=== PATIENT | female | born 1960 | race Caucasian/White ===

== ENCOUNTER → 2016-03-30 | Day surgery (SDC) | payer BC ==
[~2016-03-30] MED LIST: IV RINGERS,LACTATED 1000ML 1,000 ML IV ONE; LIDOCAINE 2% PF Vial for OR 5 ML VIAL. ONE; LISI-334 PO; PROPOFOL 20 ML IV ONE; VENTOLIN HFA18 GM INH
[2016-03-30 14:15] VITALS: BP 164/94
== END ==
LOC: SURG 12:37
PROVIDERS: ATTEND Internal Medicine Gastroenterology
DX: K22.2 Esophageal obstruction (principal); K29.50 Unspecified chronic gastritis without bleeding; R13.10 Dysphagia, unspecified
CPT/HCPCS: 43235; 43450; J2704

== ENCOUNTER → 2016-04-07 | Outpatient (CLI) | payer BC ==
[2016-03-30 14:15] VITALS: BP 164/94
[~2016-04-07] VITALS: Ht 157.5 cm; Wt 71.7 kg
[~2016-04-07] MED LIST changes: -IV RINGERS,LACTATED 1000ML 1,000 ML IV ONE; -LIDOCAINE 2% PF Vial for OR 5 ML VIAL. ONE; -PROPOFOL 20 ML IV ONE; +SINCALIDE 1.4 MCG in IV NORMAL SALINE 50ML 30 ML IV ONE
--- NOTE | 2016-04-07 13:41 | RAD ---
Indication: Epigastric pain. No discrete liver mass is detected. The gallbladder is without stones or sludge. No wall thickening or pericholecystic fluid is identified. The pancreas was not well-visualized. The spleen is unremarkable. The kidneys are unremarkable. No hydronephrosis is identified. The aorta is nonaneurysmal. There is no ascites. Impression: Unremarkable abdominal ultrasound.
--- NOTE | 2016-04-07 14:51 | RAD ---
Indication: Epigastric pain. The patient was administered 5.0 mCi of technetium 99m Choletec and imaging over the abdomen was performed. Next, the patient was administered 1.4 mcg of CCK intravenously and gallbladder ejection fraction was calculated. There is homogeneous uptake of activity by the liver with prompt excretion into the gallbladder and common duct, with normal passage of activity into the small bowel. The gallbladder ejection fraction is normal at 92%. Impression: Normal HIDA scan and gallbladder ejection fraction.
== END | disposition home or self-care (01) ==
LOC: US 10:18
PROVIDERS: ATTEND Internal Medicine Gastroenterology
DX: R10.13 Epigastric pain (principal)
CPT/HCPCS: 76700; 78226; 96374; 96375; A9537; J2805

== ENCOUNTER → 2017-11-02 | Outpatient (CLI) | payer OTHER ==
[2016-04-18 13:15] VITALS: BP 154/90
[~2017-11-02] MED LIST changes: +BUTA1CAP29 PO; -SINCALIDE 1.4 MCG in IV NORMAL SALINE 50ML 30 ML IV ONE
--- NOTE | 2017-11-02 15:30 | KCIC ---
Bilateral digital screening mammograms: Reason for examination: Routine screening. Comparison is made to previous studies dated 07/16/2015 and 01/15/2014. Interpretation was made with the benefit of CAD. The skin and nipples show no abnormalities. No abnormal axillary lymph nodes are seen. The breast parenchyma is predominantly fatty. (Breast density: Category A.) There are no dominant masses, suspicious calcifications or architectural distortions. Impression: No evidence of malignancy. Recommend routine screening. BI-RADS Category 1: Negative. "Our facility is accredited by the [employer] Mammography [employer]." This patient's information has been entered into a reminder system for the patient to be notified with the results of her examination and a target date for the next mammogram. Electronically signed by: Suyapa Dial MD (11/02/2017 3:27 PM) [facility]
== END | disposition home or self-care (01) ==
LOC: KCIC MAMMO 14:21
PROVIDERS: ATTEND Family Medicine
DX: Z12.31 Encounter for screening mammogram for malignant neoplasm of breast (principal); I10 Essential (primary) hypertension
CPT/HCPCS: 77067

== ENCOUNTER → 2018-06-27 | Outpatient (CLI) | payer OTHER ==
[2016-04-18 13:15] VITALS: BP 154/90
[~2018-06-27] MED LIST changes: +AMIT25TA PO; +AZEL6DRO2 EACHEYE; +BENZ100C PO; +CYCL10TA2 PO; +FLUT9.9S NS; +HYDR30CR6 RC; +LEVO100T5 PO; +LISI1TAB7 PO; +MOME13HF2 IH; +MONT10TA9 PO; +MUPI22OI2 TP; +OLOP5DRO EACHEYE; +PANT20TA2 PO; +PRAM0.255 PO; +RANI-376 PO
--- NOTE | 2018-06-28 06:27 | PAIN ---
DATE OF SERVICE: 06/27/2018 INITIAL CONSULTATION FOR PAIN CLINIC CHIEF COMPLAINT: Low back and bilateral lower extremity pain. HISTORY OF PRESENT ILLNESS: This is a 57-year-old female who presents with history of pain in low back, bilateral lower extremities for many years, worse over the past 6 months or so to a year ago. The patient reports no specific injury or accident that she is aware of, but over time it is getting worse in the low back, mainly with bending and stooping, standing for prolonged periods with pain radiating in the posterior gluteus, posterior lateral thigh, lateral anterior thighs and medial knees bilaterally. The patient reports mainly across the low back is her main problem, but when she is on her feet for more than about 30 minutes, it does begin to radiate into the lower extremities. The patient reports it awakens her from sleep at night, not every night, but some nights. It does not affect her bowel or bladder control, does affect her ability to walk. She is not using any assistive devices to ambulate, but is simply putting up with the pain while she is working, which she does mostly on her feet with a lot of bending and stooping and lifting activities. The patient reports she has not had any recent treatment for the back. She had some injections about in 2013 in the sacroiliac regions, which she reports helped some with the back pain, but not the leg pain. The patient has not had any formal physical therapy recently, has not had any chiropractic treatment. She did some stretching on her own using heat and ice at home when her pain is flared which helps only mildly. The patient has tried [id number]-uxa-[id number] medications including Advil and Tylenol, which did not help the pain significantly as well. The patient does not have any recent diagnostic studies, she does have some notes from [address] Andrzej Fan, describing degenerative disk disease and lumbar spine as well as some sacroiliitis at that time. The patient rates her disability rate from 0-10, 10 being the worst, is an 8 in all categories with family and home responsibilities, recreation, social activity, occupation, sexual behavior, self-care and life support activities. The patient reports no loss of motor function, but significant fatigability with both legs and the hips, especially when walking and standing for prolonged periods of greater than 30 minutes to an hour. PAST MEDICAL HISTORY: Significant for shortness of breath, hypertension, otherwise has been in fairly good health. PAST SURGICAL HISTORY: The patient reports no previous surgeries. CURRENT MEDICATIONS: Include Protonix, Zantac, Mirapex, Patanol eyedrops, Ventolin inhaler, amitriptyline, Tessalon Perles, cyclobenzaprine, Flonase, Analpram and hydrocortisone cream, levothyroxine, mupirocin ointment, montelukast, Dulera inhaler, and lisinopril. ALLERGIES: The patient has no known drug allergies. FAMILY HISTORY: Negative for any significant conditions that she lists. SOCIAL HISTORY: The patient does not drink alcohol, does not smoke. Does not use any illegal, illicit or recreational drugs. Lives locally in [place], [place]. 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 REVIEW OF SYSTEMS: Positive for those items mentioned in history of present illness. All systems reviewed and otherwise negative. It is complete, full and well documented on the patient's chart. PHYSICAL EXAMINATION: VITAL SIGNS: The patient's blood pressure 145/85, pulse 85, respiration 18, temperature 98.3 degrees Fahrenheit. Height is 5 feet 2 inches, weight is 150 pounds. GENERAL: The patient is awake, alert, oriented, appropriate, very pleasant demeanor. HEENT: Head shows normocephalic, atraumatic. Extraocular movements are intact and symmetrical. Oral cavity: Mucous membranes moist and pink. Dentition is intact. NECK: Shows anterior throat supple without palpable lymphadenopathy noted. Swallow reflex symmetrical. CHEST: Shows normal on inspection. Breath sounds clear to auscultation bilaterally. HEART: Shows S1, S2 clear. No murmurs auscultated. ABDOMEN: Soft, nontender, nondistended. No palpable organomegaly is noted. No rebound or guarding demonstrated. BACK: Shows spine grossly in the midline. Normal appearing thoracic kyphosis and mild flattening of lumbar lordotic curvature. No previous surgical scars noted. The patient does have some scarring in the bilateral gluteus, which she reports is from an asthma shot of some sort in the [place] at least 25 years ago and it is in both sides of gluteus with some significant in-tracted skin as well as a palpable scar tissue beneath these which is not significantly tender on palpation, however. The patient's lumbar spine shows paraspinous muscles symmetrical on inspection. With palpation, shows some moderate tenderness throughout the middle and lower distribution of paraspinous muscles bilaterally, slightly more on the right than the left, but present bilaterally, no specific trigger points are noted. The muscles are firm and taut and again diffusely tender throughout. There is some minor tenderness over the posterior iliac spine and in the posterior aspect of the sacroiliac joint, but only mildly even with deep palpation. No specific tenderness over the sacrum itself or the spinous processes. The patient does show good rotational motion of lumbar spine, both laterally as well as extension and flexion greater than 10 degrees, right and left extension greater than 10 degrees, forward flexion 45 degrees without exacerbation of pain significantly. EXTREMITIES: Lower extremities show deep tendon reflexes at 2+ in patellar, 1+ tendo-calcaneus tendons and are equal. Motor exam is approximately 4 on a scale of 5, but symmetrical with dorsiflexion, extension, quadriceps and hamstring flexion. Peripheral pulses of 1+ posterior tibia. No peripheral edema is noted. Lower extremities are warm and dry to touch, equal in color and appearance. Straight leg raise noted to be negative for reproduction of any radicular symptoms bilaterally. Gaenslen's and Donal's maneuvers are negative bilaterally as well. The patient's skin shows warm and dry, good turgor. No edema. No sores, rashes or bruising throughout. The patient is able to stand, stand on her toes without significant difficulty or loss of balance, is walking with a slight shuffling gait, but does not appear to favor the right or left lower extremity significantly, not using any assistive devices such as canes or walkers to ambulate. IMPRESSION: 1. This is a 57-year-old female with long history of low back pain, bilateral lower extremity pain, slightly worse on the right than the left with pain in a radicular fashion, L4-L5 dermatomal distribution. 2. History of hypertension. 3. Shortness of breath. 4. Asthma by history. PLAN: Options were discussed with the patient including conservative medical management, physical therapy, interventional techniques. She would like to pursue with interventional techniques. We discussed a lumbar epidural steroid injection using description as well as anatomical models to describe the procedure. First, we will obtain an MRI scan. It has been many years since she had any diagnostic studies performed on her spine with radicular symptoms, however, and we will wait for results of that. Once that is obtained, we will discuss further treatment at that time, potentially L4-L5 level lumbar epidural steroid injection. KATHLEEN MALIK MD DR: KATYA/ok JOB#: [id number] / [id number] STEVE Vann MD
== END | disposition home or self-care (01) ==
LOC: PNCL 13:27
PROVIDERS: ATTEND Anesthesiology
DX: M54.5 Low back pain (principal); M79.605 Pain in left leg; M79.604 Pain in right leg; I10 Essential (primary) hypertension; J45.909 Unspecified asthma, uncomplicated; Z79.899 Other long term (current) drug therapy
CPT/HCPCS: G0463

== ENCOUNTER → 2018-07-05 | Outpatient (CLI) | payer OTHER ==
[2016-04-18 13:15] VITALS: BP 154/90
--- NOTE | 2018-07-06 14:25 | RAD ---
MRI Lumbar Spine without contrast History: Low back pain, bilateral leg radiculopathy Technique: Multiplanar, multi sequential noncontrast MR imaging was performed of the lumbar spine. Comparison: October 31, 2013 Findings: There is increased endplate irregularity and degenerative endplate change at L2-3, progression of advanced degenerative disc disease at this level, no fluid in the intervertebral disc space and no paraspinous edema at this level. There is minimal posterior subluxation L2 relative to L3, negligible posterior subluxation L3 relative to L4. There is [id number] degenerative disc disease at L3-4, L1-2, and T12-L1. Conus terminates at T12-L1. There is mild levoscoliosis centered near L2-L3. Not included on axial images, there is posterior protrusion at T11-12 without significant spinal stenosis. L1-L2: Neural foramina and spinal canal are adequate. L2-L3: There is minimal disc osteophyte complex and bulge superimposed on the posteriorly subluxed L2 vertebral body margin with mild indentation upon the ventral thecal sac, no significant spinal stenosis. Neural foramina are overall adequate. L3-L4: There is negligible disc osteophyte complex. There is minimal buckling of the ligamentum flavum. Spinal canal and neural foramina are adequate. L4-L5: Spinal canal and neural foramina are adequate. There is minimal buckling of the ligamentum flavum. L5-S1: Spinal canal and neural foramina are adequate. Impression: 1. Comparing with the 2013 exam, there has been progression of fairly advanced degenerative disease at L2-3, increased irregularity and degenerative endplate change at this level. There is a lesser degree of degenerative disc disease at L3-4 and L1-L2. There is no new significant lumbar spinal stenosis or neural foramina compromise. There is mild lumbar levoscoliosis. Electronically signed by: James Painter MD (07/06/2018 2:22 PM) [facility]
== END | disposition home or self-care (01) ==
LOC: MRI 13:43
PROVIDERS: ATTEND Anesthesiology
DX: M51.16 Intervertebral disc disorders with radiculopathy, lumbar region (principal); M41.86 Other forms of scoliosis, lumbar region
CPT/HCPCS: 72148